=== PATIENT | female | born 1930 | race Caucasian/White ===

== ENCOUNTER 2018-03-06 19:02 | Emergency (ER) | payer MEDICARE, MEDICAID ==
[~2018-03-06] VITALS: Ht 157.5 cm; Wt 80.0 kg
[2018-03-06 22:00] VITALS: BP 156/80
== END 2018-03-07 00:22 | disposition home or self-care (01) ==
LOC: ER 19:03
DX: R60.0 Localized edema (principal); I48.91 Unspecified atrial fibrillation
CPT/HCPCS: 93970; 99284

== ENCOUNTER 2018-04-29 08:58 | Outpatient (CLI) | payer MEDICARE, MEDICAID ==
[2018-04-29] VITALS (9 sets, daily range): BP systolic 125–158; BP diastolic 49–78
[~2018-04-29] VITALS: Ht 162.6 cm; Wt 77.0 kg
[2018-04-29] MEDS ORDERED: regadenoson 0.4mg/5ml syringe IV ONE ×2 (10:10→11:17)
[2018-04-29] MEDS ORDERED: normal saline 1000ml 1,000 ML IV SCH (10:15)
[2018-04-29] MEDS ORDERED: nitroGLYCERIN 0.4mg SUBLingual tab SL PRN (10:15)
[2018-04-29] MEDS ORDERED: aminophylline 250mg/10ml inj. IV PRN (10:15)
[2018-04-29] MEDS ORDERED: aminophylline inj. 10 ML IV ONE (11:17)
[2018-04-29 15:39] LABS: ALBUMIN 3.6 G/DL (3.4-5.0); ANION GAP 7 (8-16); BLOOD UREA NITROGEN 21 MG/DL (7-18); BUN/CREATININE RATIO 22.1 (6.6-38.0); CALCIUM 9.6 MG/DL (8.5-10.1); CHLORIDE 101 MMOL/L (99-107); CREATININE 0.95 MG/DL (0.40-0.90); GLUCOSE 82 MG/DL (70-104); POTASSIUM 3.8 MMOL/L (3.5-5.1); SODIUM 137 MMOL/L (135-145); TOTAL CARBON DIOXIDE 28.9 MMOL/L (24-32); eGFR 56 ML/MIN
[2018-04-29] MEDS ORDERED: iohexol 350MG/ML 100ml bottle IV ONE (16:12)
== END 2018-04-29 23:59 | disposition home or self-care (01) ==
LOC: RAD 08:58
PROVIDERS: ATTEND Internal Medicine Cardiovascular Disease
DX: Z01.818 Encounter for other preprocedural examination (principal); I48.91 Unspecified atrial fibrillation; I31.3 Pericardial effusion (noninflammatory); I11.9 Hypertensive heart disease without heart failure; J84.9 Interstitial pulmonary disease, unspecified; I71.9 Aortic aneurysm of unspecified site, without rupture; R60.0 Localized edema; R07.9 Chest pain, unspecified
CPT/HCPCS: 36415; 71275; 78452; 80048; 83880; 93017; 93306; A9500; J0280; J7030; Q9967

== ENCOUNTER 2018-07-14 08:55 | Inpatient (IN) | payer MEDICARE, MEDICAID ==
[~2018-07-14] VITALS: Ht 170.2 cm; Wt 81.8 kg
[2018-07-14] VITALS (8 sets, daily range): BP systolic 123–145; BP diastolic 50–79
[2018-07-14 10:00] LABS: BASOPHILS % (AUTO) 0.1 % (0-1); EOSINOPHILS % (AUTO) 0.2 % (0-6); HEMATOCRIT 22.8 % (35.0-45.0); HEMOGLOBIN 7.4 g/dl (12.0-16.0); LYMPHOCYTES # (AUTO) 0.4 X10'3 (1.1-4.8); LYMPHOCYTES % (AUTO) 3.2 % (21-51); MEAN CORPUSCULAR HEMOGLOBIN 31.7 PG (27.0-31.0); MEAN CORPUSCULAR HGB CONC 32.3 g/dL (33.0-36.5); MEAN PLATELET VOLUME 8.3 FL (7.4-10.4); MONOCYTES # (AUTO) 0.6 X10'3 (0-0.9); MONOCYTES % (AUTO) 4.9 % (2-12); NEUTROPHILS # (AUTO) 10.3 X10'3 (1.8-7.7); NEUTROPHILS % (AUTO) 91.6 % (42-75); PLATELET COUNT 187 X10'3 (140-440); RED BLOOD COUNT 2.33 X10'6 (4.20-5.60); RED CELL DISTRIBUTION WIDTH 19.7 % (11.5-14.5); WHITE BLOOD COUNT 11.3 X10'3 (4.5-11.0)
[2018-07-14 10:14] LABS: INR 1.2 INR; PARTIAL THROMBOPLASTIN TIME 26 SECONDS (22-32)
[2018-07-14 10:25] LABS: ALANINE AMINOTRANSFERASE 22 U/L (12-78); ALBUMIN 2.5 G/DL (3.4-5.0); ALBUMIN/GLOBULIN RATIO 0.8 (1.1-1.5); ALKALINE PHOSPHATASE 51 IU/L (46-116); ANION GAP 7 (8-16); ASPARTATE AMINO TRANSFERASE 22 U/L (10-37); BILIRUBIN,TOTAL 0.7 MG/DL (0.1-1.0); BLOOD UREA NITROGEN 56 MG/DL (7-18); CALCIUM 8.5 MG/DL (8.5-10.1); CHLORIDE 110 MMOL/L (99-107); GLUCOSE 130 MG/DL (70-104); POTASSIUM 4.3 MMOL/L (3.5-5.1); SODIUM 143 MMOL/L (135-145); TOTAL CARBON DIOXIDE 26.2 MMOL/L (24-32); TOTAL PROTEIN 5.5 G/DL (6.4-8.2); eGFR 53 ML/MIN
[2018-07-14 10:26] LABS: TROPONIN I < 0.04 NG/ML (0.0-0.05)
[2018-07-14] MEDS ORDERED: pantoprazole IV 80 MG in normal saline 100ml IV soln 100 ML IV ONE ×4 (11:15)
[2018-07-14 11:19] LABS: CLARITY,URINE CLEAR (Clear); COLOR,URINE YELLOW (Yellow); GLUCOSE, URINE NEGATIVE (Neg); KETONES,URINE TRACE mg/dl (Neg); LEUKOCYTE ESTERASE ,URINE NEGATIVE (Neg); NITRITES, URINE NEGATIVE (Neg); OCCULT BLOOD,URINE NEGATIVE (Neg); PROTEIN,URINE NEGATIVE (Neg); UROBILINOGEN,URINE 0.2 E.U/dL (0.2-1.0)
[2018-07-14] MEDS ORDERED: tranexamic acid 100mg/ml inj. IV ONE (11:20)
[2018-07-14 11:21] LABS: UA COLLECTION TYPE STRAIGHT CATH
[2018-07-14] MEDS ORDERED: pantoprazole 40 MG vial IV ONE (11:30)
--- NOTE | 2018-07-14 13:00 | NUR ---
Unable to admin kdur, patient refusing at this time
[2018-07-14] MEDS ORDERED: HYDR-3972 PO (13:32)
[2018-07-14] MEDS ORDERED: METH2.5T55 PO (13:32)
[2018-07-14] MEDS ORDERED: POTA8TAB8 PO (13:32)
[2018-07-14] MEDS ORDERED: FURO20TA4 PO (13:32)
[2018-07-14] MEDS ORDERED: ASPI81TA44 PO (13:32)
[2018-07-14] MEDS ORDERED: FOLI1TAB16 PO (13:32)
[2018-07-14] MEDS ORDERED: METH2.5T PO (13:32)
[2018-07-14] MEDS ORDERED: METO25TA6 PO (13:32)
[2018-07-14 14:22] LABS: OCCULT BLOOD STOOL POSITIVE (Neg)
[2018-07-14] MEDS ORDERED: acetaminophen 325mg tablet PO PRN (14:25)
[2018-07-14] MEDS ORDERED: metoclopramide 5 mg/ml inj IV PRN (14:25)
[2018-07-14] MEDS: K and/or MAG REPLACEMENT MC SCH (14:25)
[2018-07-14] MEDS ORDERED: magnesium Cl slow-release 64mg tablet PO PRN (14:25)
[2018-07-14] MEDS ORDERED: bisacodyl 10mg suppository rectal RC PRN (14:25)
[2018-07-14] MEDS ORDERED: potassium Cl 20 mEq SR tablet PO PRN ×2 (14:25)
[2018-07-14] MEDS ORDERED: morphine 2 MG/ML inj. syringe IV PRN ×2 (14:25)
[2018-07-14] MEDS ORDERED: magnesium 2GM in 50ml NS 50 ML IV PRN (14:25)
[2018-07-14] MEDS ORDERED: ondansetron/PF 4mg/2ml inj IV PRN (14:25)
[2018-07-14] MEDS ORDERED: diphenhydrAMINE 50 mg/ml inj IV PRN (14:25)
[2018-07-14] MEDS ORDERED: acetaminophen 650mg rectal suppository RC PRN (14:25)
[2018-07-14] MEDS ORDERED: potassium Cl 40MEQ/NS 500ml 500 ML IV PRN ×2 (14:25)
[2018-07-14] MEDS ORDERED: magnesium 4gm in 100ml NS 100 ML IV PRN (14:25)
--- NOTE | 2018-07-14 14:40 | NUR ---
after ct resulted the hospitalist wanted to rule out stroke due to confusion
[2018-07-14 15:04] LABS: MEAN CORPUSCULAR VOLUME 96.9 FL (78-98); MEAN PLATELET VOLUME 8.3 FL (7.4-10.4); PLATELET COUNT 172 X10'3 (140-440); RED BLOOD COUNT 2.16 X10'6 (4.20-5.60); RED CELL DISTRIBUTION WIDTH 19.7 % (11.5-14.5); WHITE BLOOD COUNT 8.1 X10'3 (4.5-11.0)
[2018-07-14 15:07] LABS: HEMATOCRIT 20.9 % (35.0-45.0); HEMOGLOBIN 6.9 g/dl (12.0-16.0)
--- NOTE | 2018-07-14 15:08 | NUR ---
unable to perform most of stroke assessment cause pt is so confused
[2018-07-14] MEDS: normal saline 1000ml 1,000 ML IV SCH ×3 (15:19→21:30)
[2018-07-14] MEDS ORDERED: MIDAZolam 5mg/5ml vial ONE (15:37)
[2018-07-14] MEDS ORDERED: LIDOcaine Viscous 15ml cup ONE (15:37)
[2018-07-14] MEDS ORDERED: fentaNYL/PF 50MCG/1 ML 2ML syringe ONE (15:37)
--- NOTE | 2018-07-14 17:10 | NUR ---
family has decided to place the pt on comfort care. paging hosp now to notifiy him
--- NOTE | 2018-07-14 17:22 | NUR ---
pt is going on comfort care, md aware of patient's family decision to place pt on comfort care. family at bedside
--- NOTE | 2018-07-14 19:21 | NUR ---
PAGE TO MRI FOR ETA OF MRI/MRA FOR RM 4010B. RESPONSE FROM [facility]; UNABLE TO PERFORM MRI/MRA THIS EVENING, SCHEDULED FOR MORNING.
--- NOTE | 2018-07-14 19:35 | NUR ---
REPORT REC'D FROM DINAH TAMAYO.
[2018-07-14] MEDS: pantoprazole 40MG/NS 100ML BAG 100 ML IV SCH ×2 (21:11→21:30)
[2018-07-14 21:19] LABS: HEMATOCRIT 23.7 % (35.0-45.0); MEAN CORPUSCULAR HEMOGLOBIN 32.2 PG (27.0-31.0); MEAN CORPUSCULAR HGB CONC 33.6 g/dL (33.0-36.5); MEAN CORPUSCULAR VOLUME 95.8 FL (78-98); MEAN PLATELET VOLUME 8.1 FL (7.4-10.4); PLATELET COUNT 139 X10'3 (140-440); RED BLOOD COUNT 2.47 X10'6 (4.20-5.60); RED CELL DISTRIBUTION WIDTH 17.6 % (11.5-14.5)
[2018-07-15] MEDS: pantoprazole 40MG/NS 100ML BAG 100 ML IV SCH ×4 (03:55→19:02)
[2018-07-15 05:57] LABS: BASOPHILS % (AUTO) 0.3 % (0-1); EOSINOPHILS # (AUTO) 0.1 X10'3 (0-0.9); EOSINOPHILS % (AUTO) 1.5 % (0-6); HEMATOCRIT 23.3 % (35.0-45.0); HEMOGLOBIN 7.8 g/dl (12.0-16.0); LYMPHOCYTES # (AUTO) 0.8 X10'3 (1.1-4.8); LYMPHOCYTES % (AUTO) 15.3 % (21-51); MEAN CORPUSCULAR HEMOGLOBIN 32.4 PG (27.0-31.0); MEAN CORPUSCULAR HGB CONC 33.5 g/dL (33.0-36.5); MEAN CORPUSCULAR VOLUME 96.6 FL (78-98); MEAN PLATELET VOLUME 8.4 FL (7.4-10.4); MONOCYTES # (AUTO) 0.2 X10'3 (0-0.9); MONOCYTES % (AUTO) 2.9 % (2-12); NEUTROPHILS # (AUTO) 4.3 X10'3 (1.8-7.7); PLATELET COUNT 147 X10'3 (140-440); RED BLOOD COUNT 2.42 X10'6 (4.20-5.60); RED CELL DISTRIBUTION WIDTH 17.8 % (11.5-14.5); WHITE BLOOD COUNT 5.4 X10'3 (4.5-11.0)
--- NOTE | 2018-07-15 06:11 | NUR ---
Patient in room ORTHO 4010B. I have received report from Reyna NIX and had the opportunity to ask questions and assume patient care.
[2018-07-15 06:18] LABS: ALANINE AMINOTRANSFERASE 23 U/L (12-78); ALBUMIN 2.5 G/DL (3.4-5.0); ALKALINE PHOSPHATASE 46 IU/L (46-116); ANION GAP 7 (8-16); ASPARTATE AMINO TRANSFERASE 27 U/L (10-37); BILIRUBIN,TOTAL 0.7 MG/DL (0.1-1.0); BLOOD UREA NITROGEN 43 MG/DL (7-18); BUN/CREATININE RATIO 60.6 (6.6-38.0); CALCIUM 8.4 MG/DL (8.5-10.1); CHLORIDE 113 MMOL/L (99-107); CREATININE 0.71 MG/DL (0.40-0.90); GLUCOSE 74 MG/DL (70-104); MAGNESIUM 1.6 MG/DL (1.5-2.4); PHOSPHORUS 2.5 MG/DL (2.3-4.5); POTASSIUM 3.7 MMOL/L (3.5-5.1); SODIUM 146 MMOL/L (135-145); TOTAL CARBON DIOXIDE 26.2 MMOL/L (24-32); TOTAL PROTEIN 5.1 G/DL (6.4-8.2); eGFR 78 ML/MIN
--- NOTE | 2018-07-15 06:18 | NUR ---
REPORT GIVEN TO DINAH MCLAUGHLIN.
[2018-07-15] MEDS: K and/or MAG REPLACEMENT MC SCH (08:00)
[2018-07-15 09:15] LABS: HEMATOCRIT 23.9 % (35.0-45.0); MEAN CORPUSCULAR HEMOGLOBIN 32.1 PG (27.0-31.0); MEAN CORPUSCULAR HGB CONC 33.3 g/dL (33.0-36.5); MEAN CORPUSCULAR VOLUME 96.5 FL (78-98); MEAN PLATELET VOLUME 8.1 FL (7.4-10.4); PLATELET COUNT 148 X10'3 (140-440); RED BLOOD COUNT 2.48 X10'6 (4.20-5.60); WHITE BLOOD COUNT 5.1 X10'3 (4.5-11.0)
--- NOTE | 2018-07-15 11:24 | NUR ---
Problems reprioritized. Patient report given, questions answered & plan of care reviewed with Reyna NIX.
--- NOTE | 2018-07-15 12:11 | NUR ---
Pt has been made DNR w/ comfort care. Will continue to follow per protocol. Addendum: 07/15/18 at [address] Amended: Links added.
[2018-07-15 18:00] VITALS: BP 138/58
[2018-07-15] MEDS: normal saline 1000ml 1,000 ML IV SCH (20:22)
[2018-07-15 22:00] VITALS: BP 131/61
[2018-07-16] MEDS: pantoprazole 40MG/NS 100ML BAG 100 ML IV SCH ×6 (00:07→22:49)
[2018-07-16 05:50] LABS: BASOPHILS % (AUTO) 0.4 % (0-1); EOSINOPHILS # (AUTO) 0.2 X10'3 (0-0.9); EOSINOPHILS % (AUTO) 2.3 % (0-6); HEMATOCRIT 23.9 % (35.0-45.0); HEMOGLOBIN 8.1 g/dl (12.0-16.0); LYMPHOCYTES # (AUTO) 0.8 X10'3 (1.1-4.8); LYMPHOCYTES % (AUTO) 10.5 % (21-51); MEAN CORPUSCULAR HEMOGLOBIN 32.7 PG (27.0-31.0); MEAN CORPUSCULAR HGB CONC 33.7 g/dL (33.0-36.5); MEAN CORPUSCULAR VOLUME 97.1 FL (78-98); MEAN PLATELET VOLUME 8.5 FL (7.4-10.4); MONOCYTES # (AUTO) 0.1 X10'3 (0-0.9); MONOCYTES % (AUTO) 1.9 % (2-12); NEUTROPHILS # (AUTO) 6.1 X10'3 (1.8-7.7); NEUTROPHILS % (AUTO) 84.9 % (42-75); PLATELET COUNT 148 X10'3 (140-440); RED BLOOD COUNT 2.46 X10'6 (4.20-5.60); RED CELL DISTRIBUTION WIDTH 17.5 % (11.5-14.5); WHITE BLOOD COUNT 7.2 X10'3 (4.5-11.0)
[2018-07-16 06:00] VITALS: BP 143/56
[2018-07-16 06:12] LABS: ANION GAP 9 (8-16); CHLORIDE 113 MMOL/L (99-107); GLUCOSE 64 MG/DL (70-104); POTASSIUM 3.5 MMOL/L (3.5-5.1); SODIUM 146 MMOL/L (135-145); TOTAL CARBON DIOXIDE 23.7 MMOL/L (24-32)
[2018-07-16 06:13] LABS: ALANINE AMINOTRANSFERASE 22 U/L (12-78); ALBUMIN 2.4 G/DL (3.4-5.0); ALBUMIN/GLOBULIN RATIO 0.9 (1.1-1.5); ALKALINE PHOSPHATASE 45 IU/L (46-116); ASPARTATE AMINO TRANSFERASE 24 U/L (10-37); BLOOD UREA NITROGEN 33 MG/DL (7-18); BUN/CREATININE RATIO 48.5 (6.6-38.0); CALCIUM 8.4 MG/DL (8.5-10.1); CREATININE 0.68 MG/DL (0.40-0.90); MAGNESIUM 1.6 MG/DL (1.5-2.4); PHOSPHORUS 2.3 MG/DL (2.3-4.5); eGFR 82 ML/MIN
--- NOTE | 2018-07-16 06:15 | NUR ---
Patient in room ORTHO 4010. I have received report from uSma NIX and had the opportunity to ask questions and assume patient care.
[2018-07-16] MEDS: normal saline 1000ml 1,000 ML IV SCH ×2 (06:22→14:35)
--- NOTE | 2018-07-16 06:29 | NUR ---
REPORT TO DINAH HERRON.
[2018-07-16] MEDS: K and/or MAG REPLACEMENT MC SCH (08:00)
[2018-07-16 10:00] VITALS: BP 131/62
--- NOTE | 2018-07-16 10:00 | NUR ---
Spoke with MD thomson sodium of 146, no new orders received.
--- NOTE | 2018-07-16 18:10 | NUR ---
Problems reprioritized. Patient report given, questions answered & plan of care reviewed with Manuela NIX.
--- NOTE | 2018-07-16 18:11 | NUR ---
Spoke with MD. Guan to remain NPO at this time. Will start diet tomorrow if no EGD performed.
--- NOTE | 2018-07-16 18:18 | NUR ---
RECEIVED REPORT FROM GERMAINE NIX AND ASSUMED PATIENT CARE
[2018-07-16 18:19] VITALS: BP 140/68
--- NOTE | 2018-07-16 22:02 | NUR ---
REPORT GIVEN TO PARESH NIX
--- NOTE | 2018-07-16 22:50 | NUR ---
report received from DINAH Hernandez
[2018-07-17] VITALS (9 sets, daily range): BP systolic 135–172; BP diastolic 43–89
[2018-07-17] MEDS: normal saline 1000ml 1,000 ML IV SCH ×3 (04:05→16:49)
[2018-07-17] MEDS: pantoprazole 40MG/NS 100ML BAG 100 ML IV SCH ×5 (04:05→20:47)
--- NOTE | 2018-07-17 06:05 | NUR ---
Patient in room ORTHO 4010. I have received report from Deb RN and had the opportunity to ask questions and assume patient care.
[2018-07-17 06:15] LABS: ALANINE AMINOTRANSFERASE 21 U/L (12-78); ALBUMIN 2.6 G/DL (3.4-5.0); ALBUMIN/GLOBULIN RATIO 0.8 (1.1-1.5); ALKALINE PHOSPHATASE 54 IU/L (46-116); ANION GAP 12 (8-16); ASPARTATE AMINO TRANSFERASE 25 U/L (10-37); BILIRUBIN,TOTAL 1.1 MG/DL (0.1-1.0); BLOOD UREA NITROGEN 27 MG/DL (7-18); CALCIUM 8.1 MG/DL (8.5-10.1); CHLORIDE 113 MMOL/L (99-107); CREATININE 0.71 MG/DL (0.40-0.90); GLUCOSE 62 MG/DL (70-104); MAGNESIUM 1.6 MG/DL (1.5-2.4); PHOSPHORUS 2.5 MG/DL (2.3-4.5); POTASSIUM 3.5 MMOL/L (3.5-5.1); SODIUM 146 MMOL/L (135-145); TOTAL CARBON DIOXIDE 21.2 MMOL/L (24-32); TOTAL PROTEIN 5.8 G/DL (6.4-8.2); eGFR 78 ML/MIN
[2018-07-17 06:23] LABS: BASOPHILS % (AUTO) 0.5 % (0-1); EOSINOPHILS # (AUTO) 0.2 X10'3 (0-0.9); EOSINOPHILS % (AUTO) 1.8 % (0-6); HEMATOCRIT 25.6 % (35.0-45.0); HEMOGLOBIN 8.5 g/dl (12.0-16.0); LYMPHOCYTES # (AUTO) 0.7 X10'3 (1.1-4.8); LYMPHOCYTES % (AUTO) 7.6 % (21-51); MEAN CORPUSCULAR HEMOGLOBIN 32.4 PG (27.0-31.0); MEAN CORPUSCULAR HGB CONC 33.1 g/dL (33.0-36.5); MEAN PLATELET VOLUME 8.4 FL (7.4-10.4); MONOCYTES # (AUTO) 0.3 X10'3 (0-0.9); MONOCYTES % (AUTO) 2.7 % (2-12); NEUTROPHILS # (AUTO) 8.5 X10'3 (1.8-7.7); NEUTROPHILS % (AUTO) 87.4 % (42-75); PLATELET COUNT 175 X10'3 (140-440); RED BLOOD COUNT 2.62 X10'6 (4.20-5.60); WHITE BLOOD COUNT 9.7 X10'3 (4.5-11.0)
[2018-07-17] MEDS: K and/or MAG REPLACEMENT MC SCH (08:00)
[2018-07-17] MEDS: pregabalin 75mg capsule PO SCH ×2 (10:00→19:15)
--- NOTE | 2018-07-17 12:03 | NUR ---
Pt taken to GI lab for an EGD
[2018-07-17] MEDS ORDERED: MIDAZolam 5mg/5ml vial ONE (12:42)
[2018-07-17] MEDS ORDERED: fentaNYL/PF 50MCG/1 ML 2ML syringe ONE (12:42)
[2018-07-17] MEDS ORDERED: LIDOcaine Viscous 15ml cup ONE (12:43)
[2018-07-17] MEDS ORDERED: epiNEPHrine 0.1mg/ml 10ml syringe ONE (14:22)
--- NOTE | 2018-07-17 15:30 | NUR ---
Pt returned from GI lab. Pt tucked in, bedding changed, wick changed. Pt given apple juice, jello. Family at bedside. Pt is alert and oriented.
--- NOTE | 2018-07-17 18:20 | NUR ---
Patient in room ORTHO 4010B. I have received report from DINAH Rodriguez and had the opportunity to ask questions and assume patient care.
[2018-07-18] MEDS: normal saline 1000ml 1,000 ML IV SCH (01:56)
[2018-07-18] MEDS: pantoprazole 40MG/NS 100ML BAG 100 ML IV SCH ×3 (01:56→11:00)
--- NOTE | 2018-07-18 05:33 | NUR ---
Spoke with Dr. Rai regarding elevated BP this morning. He ordered to restart her home BP medication with Lasix 20 mg PO Daily and Metoprolol 12.5 mg PO BID.
[2018-07-18 06:00] VITALS: BP 172/71
--- NOTE | 2018-07-18 06:15 | NUR ---
Problems reprioritized. Patient report given, questions answered & plan of care reviewed with DINAH Rodriguez.
--- NOTE | 2018-07-18 06:20 | NUR ---
Patient in room ORTHO 4010. I have received report from Madison Rabago RN and had the opportunity to ask questions and assume patient care.
[2018-07-18 06:45] LABS: BASOPHILS % (AUTO) 0.2 % (0-1); EOSINOPHILS # (AUTO) 0.1 X10'3 (0-0.9); EOSINOPHILS % (AUTO) 1.3 % (0-6); HEMATOCRIT 25.4 % (35.0-45.0); HEMOGLOBIN 8.5 g/dl (12.0-16.0); LYMPHOCYTES # (AUTO) 0.6 X10'3 (1.1-4.8); LYMPHOCYTES % (AUTO) 10.3 % (21-51); MEAN CORPUSCULAR HEMOGLOBIN 32.4 PG (27.0-31.0); MEAN CORPUSCULAR HGB CONC 33.3 g/dL (33.0-36.5); MEAN CORPUSCULAR VOLUME 97.1 FL (78-98); MONOCYTES # (AUTO) 0.4 X10'3 (0-0.9); MONOCYTES % (AUTO) 6.8 % (2-12); NEUTROPHILS % (AUTO) 81.4 % (42-75); PLATELET COUNT 160 X10'3 (140-440); RED BLOOD COUNT 2.61 X10'6 (4.20-5.60); RED CELL DISTRIBUTION WIDTH 17.4 % (11.5-14.5); WHITE BLOOD COUNT 6.1 X10'3 (4.5-11.0)
[2018-07-18 07:09] LABS: ALANINE AMINOTRANSFERASE 21 U/L (12-78); ALBUMIN 2.6 G/DL (3.4-5.0); ALBUMIN/GLOBULIN RATIO 0.9 (1.1-1.5); ALKALINE PHOSPHATASE 55 IU/L (46-116); ANION GAP 9 (8-16); ASPARTATE AMINO TRANSFERASE 20 U/L (10-37); BILIRUBIN,TOTAL 0.8 MG/DL (0.1-1.0); BLOOD UREA NITROGEN 21 MG/DL (7-18); BUN/CREATININE RATIO 27.6 (6.6-38.0); CALCIUM 7.9 MG/DL (8.5-10.1); CHLORIDE 112 MMOL/L (99-107); CREATININE 0.76 MG/DL (0.40-0.90); GLUCOSE 131 MG/DL (70-104); MAGNESIUM 1.5 MG/DL (1.5-2.4); PHOSPHORUS 1.7 MG/DL (2.3-4.5); POTASSIUM 3.2 MMOL/L (3.5-5.1); SODIUM 145 MMOL/L (135-145); TOTAL CARBON DIOXIDE 24.5 MMOL/L (24-32); TOTAL PROTEIN 5.6 G/DL (6.4-8.2); eGFR 72 ML/MIN
--- NOTE | 2018-07-18 07:23 | NUR ---
PAGER ID: [phone] MESSAGE: Dr. Brock, RE: Ms. Aguilar in [id number]. Potassium is 3.2, can we add potassium replacement protocol ordered? Protonix is IV are we able to change to PO? Please advise. Thank you. Jennifer on ortho #[id number]
[2018-07-18] MEDS ORDERED: metoprolol tartrate 12.5mg (1/2 tablet) PO SCH (08:00)
[2018-07-18] MEDS: K and/or MAG REPLACEMENT MC SCH (08:00)
[2018-07-18] MEDS ORDERED: metoprolol tartrate 25mg tablet PO SCH (08:00)
[2018-07-18] MEDS: pregabalin 75mg capsule PO SCH (08:00)
[2018-07-18] MEDS ORDERED: furosemide 20MG tablet PO SCH (08:00)
[2018-07-18] MEDS ORDERED: potassium Cl 20 mEq SR tablet PO PRN (08:55)
[2018-07-18] MEDS ORDERED: potassium Cl 40MEQ/NS 500ml 500 ML IV PRN ×2 (09:00)
[2018-07-18] MEDS: potassium Cl 20 mEq SR tablet PO PRN ×2 (09:10→13:27)
[2018-07-18 10:00] VITALS: BP 155/59
[2018-07-18] MEDS ORDERED: LYR75C PO (12:25)
[2018-07-18] MEDS ORDERED: PANT40SU2 PO (12:25)
--- NOTE | 2018-07-18 15:20 | NUR ---
Called report to [facility], spoke with Itzel who took report. Advised of pt condition, status and current plan of care.
--- NOTE | 2018-07-18 16:10 | NUR ---
[facility] arrived at 1600 to transport pt to [facility]. Assisted with moving pt to [facility]. Family at bedside and will follow transport to [place]. Family has all of pt's belongings. Pt is alert and oriented and in good spirits. No c/o pain at this time.
== END 2018-07-18 16:12 | DRG 378 ==
LOC: ER 08:55 → ORTHO 4S 17:48 → CMPBEDREQ 19:35
PROVIDERS: ADMIT Family Medicine; ATTEND Internal Medicine
PROC: 30233N1 Transfusion of Nonautologous Red Blood Cells into Peripheral Vein, Percutaneous Approach (ICD-10-PCS; 2018-07-14)
PROC: 0DB68ZX Excision of Stomach, Via Natural or Artificial Opening Endoscopic, Diagnostic (ICD-10-PCS; principal; 2018-07-17)
PROC: 0W3P8ZZ Control Bleeding in Gastrointestinal Tract, Via Natural or Artificial Opening Endoscopic (ICD-10-PCS; 2018-07-17)
DX: K25.4 Chronic or unspecified gastric ulcer with hemorrhage (principal); R47.01 Aphasia; E78.5 Hyperlipidemia, unspecified; E87.6 Hypokalemia; I10 Essential (primary) hypertension; Z96.641 Presence of right artificial hip joint; K29.70 Gastritis, unspecified, without bleeding; R09.02 Hypoxemia; D50.0 Iron deficiency anemia secondary to blood loss (chronic); Z96.653 Presence of artificial knee joint, bilateral; G89.29 Other chronic pain; M54.9 Dorsalgia, unspecified; M19.90 Unspecified osteoarthritis, unspecified site; T39.395A Adverse effect of other nonsteroidal anti-inflammatory drugs [NSAID], initial encounter; I48.91 Unspecified atrial fibrillation; G62.9 Polyneuropathy, unspecified; M06.9 Rheumatoid arthritis, unspecified; Z66 Do not resuscitate; Z79.82 Long term (current) use of aspirin; Z87.891 Personal history of nicotine dependence; Z99.3 Dependence on wheelchair; Y92.89 Other specified places as the place of occurrence of the external cause; Z79.899 Other long term (current) drug therapy
CPT/HCPCS: 36415; 43239; 70450; 70544; 70551; 71045; 74176; 80053; 81003; 82272; 83735; 84100; 84484; 85025; 85027; 85610; 85730; 86885; 86900; 86901; 86920; 87070; 92507; 92508; 92616; 93005; 96374; 96375; 99152; 99153; 99285; A4620; C9113; G0378; J0171; J2250; J3010; J7030; P9016